=== PATIENT | female | born 1970 | race Caucasian/White ===

== ENCOUNTER 2017-02-26 09:42 | Day surgery (SDC) | payer BC ==
[2017-02-26] MEDS ORDERED: PROPOFOL 10 MG/ML VIAL IV ONE (09:43)
[2017-02-26] MEDS ORDERED: FENTANYL PF 100MCG/2ML VIAL IV ONE (09:43)
[2017-02-26] MEDS ORDERED: MIDAZOLAM HCL 2MG/2ML VIAL IV ONE (09:43)
[2017-02-26] MEDS ORDERED: LIDOCAINE 2% MDV (20MG/ML) 20ML VIAL IV ONE (09:43)
--- NOTE | 2017-03-08 08:51 | Operative Note ---
DATE OF SURGERY: 02/26/2017 SURGEON: Jim Farley MD PROCEDURE: ESOPHAGOGASTRODUODENOSCOPY. REASON FOR PROCEDURE: Gastroesophageal reflux disease. DESCRIPTION: The procedure of esophagogastroduodenoscopy and risks and benefits of the procedure, including the risk of bleeding and perforation, among others, were explained to the patient who voiced understanding and agreed to have the procedure done. Physical examination was performed, and the patient was found stable for sedation. PROCEDURE: The patient was placed in the left lateral position. Sedation was initiated. A plastic bite block was inserted into the oral cavity. The Olympus [id number] gastroscope was introduced into the oral cavity and advanced to the proximal esophagus without difficulty. The esophageal mucosa was carefully examined upon introduction of the gastroscope. The proximal and mid and distal esophageal mucosa appeared normal. The gastroscope was then advanced into the stomach, and surveillance of the stomach revealed mild erythema along the gastric body and antrum but no ulcers were noted. The gastroscope was then advanced to the descending duodenum without difficulty. The duodenal bulb and descending duodenum appeared normal. The gastroscope was then withdrawn into the stomach and retroflexion was performed. There were no other lesions noted. The gastroscope was then withdrawn while carefully examining the gastric and esophageal mucosa. No other lesions noted. Multiple duodenal and gastric biopsies were obtained. The patient remained with stable vital signs and was transferred to the recovery room. RECOMMENDATIONS: 1. The patient is to continue on her proton pump inhibitors. 2. We will follow up on the biopsy. 3. I will see her back in the office as needed. Thank you for allowing me to participate in the care of your patient. CC: Kane RICH
== END 2017-02-26 12:55 | disposition home or self-care (01) ==
LOC: HOP 09:42
PROVIDERS: ATTEND Internal Medicine Gastroenterology
DX: K21.9 Gastro-esophageal reflux disease without esophagitis (principal); K29.70 Gastritis, unspecified, without bleeding
CPT/HCPCS: 43235; 00731; J3010

== ENCOUNTER 2017-08-28 16:10 | Emergency (ER) | payer BC ==
--- NOTE | 2017-08-28 16:34 | Emergency Department Record ---
History of Present Illness - General Chief Complaint: Cough Stated Complaint: COUGH Time Seen by Provider: 08/28/17 16:30 Source: Patient Mode of Arrival: Ambulatory Limitations: No limitations - History of Present Illness Initial Comments: The patient is here due to a 3 week hx of cough, nasal congestion and chest congestion. She was seen at the 3 weeks ago and was treated with a Zpak but is not better now. The cough seems to be worsening and now she feels a rattling in her chest. She denies any fever, chest pain, or SOB when not having coughing fits. The patient does smoke tobacco regularly and also has had a popping sensation in her ears recently. MD Complaint: Cough, Nasal congestion, Rhinorrhea Onset/Timin -: Week(s) - Related Data Previous Rx's Medication Instructions Recorded Albuterol Sulfate [Proair Hfa] 2 puff IH QID PRN #1 inhaler 08/28/17 Doxycycline Monohydrate [Mondoxyne 100 mg PO BID #14 capsule 08/28/17 Nl] Prednisone [Prednisone 20Mg] 40 mg PO DAILY #10 tab 08/28/17 Allergies Allergy/AdvReac Type Severity Reaction Status Date / Time diazepam [From Valium] Allergy Severe RAPID Unverified 08/28/17 16:22 HEART RATE amoxicillin trihydrate Allergy Intermediate VOMITING Unverified 08/28/17 16:22 [From Augmentin] potassium clavulanate Allergy Intermediate VOMITING Unverified 08/28/17 16:22 [From Augmentin] Travel Screening - Travel/Exposure Within Last 30 Days Have you traveled within the last 30 days?: Yes [facility] - Travel/Exposure Within Last Year Have you traveled outside the [place] in the last year?: Yes Location Detail:: [place] last september - Travel Symptoms Symptom Screening: Joint & Muscle Aches Review of Systems Constitutional: Reports: Malaise. Denies: Chills, Fever Eyes: Denies: Eye discharge ENT: Reports: Congestion Respiratory: Reports: Cough. Denies: Dyspnea, Hemoptysis, Stridor, Wheezes Cardiovascular: Denies: Arrhythmia, Chest pain Past Medical History - SOCIAL HISTORY Smoking Status: Current every day smoker Alcohol Use: Occasional Drug Use: None - RESPIRATORY Hx Respiratory Disorders: No - CARDIOVASCULAR Hx Cardio Disorders: No - NEURO Hx Neuro Disorders: No - GI Hx GI Disorders: Yes Hx Abdominal Pain: Yes (CRAMPING UNDER RIBS) Comment:: CONSTIPATION - Hx Genitourinary Disorders: Yes Comment:: HYSTERECTOMY - ENDOCRINE Hx Endocrine Disorders: No - MUSCULOSKELETAL Hx Musculoskeletal Disorders: No - PSYCH Hx Psych Problems: Yes Hx Anxiety: Yes Hx Depression: Yes - HEMATOLOGY/ONCOLOGY Hx Hematology/Oncology Disorders: No Family Medical History Any Significant Family History?: No Hx Cancer: Grandparents *Cancer Comment: GRANDFATHER Hx Heart Disease: Father Hx Resp Disorders: Father Physical Exam - General General Appearance: Alert, Oriented x3, Cooperative, No acute distress - Head Head exam: Atraumatic, Normocephalic, Normal inspection - Eye Eye exam: Normal appearance, PERRL, EOMI - ENT ENT exam: Normal exam, Mucous membranes moist, Normal external ear exam, Normal orophraynx, TM's normal bilaterally Throat exam: Normal inspection. negative: Tonsillar erythema, Tonsillar exudate - Neck Neck exam: Normal inspection, Full ROM. negative: Lymphadenopathy, Tenderness - Respiratory Respiratory exam: Normal lung sounds bilaterally. negative: Rales, Respiratory distress, Rhonchi, Stridor, Wheezes - Cardiovascular Cardiovascular Exam: Regular rate, Normal rhythm, Normal heart sounds - GI/Abdominal GI/Abdominal exam: Soft, Normal bowel sounds. negative: Tenderness - Extremities Extremities exam: Normal inspection, Full ROM, Normal capillary refill. negative: Tenderness - Neurological Neurological exam: Alert, Normal gait. negative: Abnormal gait, Motor sensory deficit Course Vital Signs 08/28/17 16:13 Temperature 97.9 F Pulse Rate 117 H Respiratory 18 Rate Blood Pressure 122/77 Pulse Ox 96 - Reevaluation(s) Reevaluation #1: The patient is resting comfortably. On recheck her HR was 85 and she is having no pain or ANTONIO. I did discuss the neg CXR with her and the need for F/U if not better in 3 days. 08/28/17 17:05 Medical Decision Making - Data Complexity MDM Data: X-Ray Ordered and/or Reviewed - Radiology Data Radiology results: Report reviewed (CXR: Neg per Rad.) Disposition Disposition: Discharge Clinical Impression: Upper respiratory infection, acute Disposition: Home, Self-Care Condition: (2) Stable Instructions: Upper Respiratory Infection (ED) Additional Instructions: Please take the Doxycycline along with the inhaller and Prednisone as directed. Please see your family doctor if not better in 3 days. Return to the ER for any worsening symptoms. Prescriptions: Albuterol Sulfate [Proair Hfa] 2 puff IH QID PRN #1 inhaler PRN Reason: Cough And Difficulty Breathing Doxycycline Monohydrate [Mondoxyne Nl] 100 mg PO BID #14 capsule Prednisone [Prednisone 20Mg] 40 mg PO DAILY #10 tab Forms: Patient Portal Access Time of Disposition: 17:04 Quality - Quality Measures Quality Measures: N/A - Blood Pressure Screening View Details: Yes Does Patient Have Any of the Following: No Blood Pressure Classification: Pre-Hypertensive BP Reading Systolic Measurement: 122 Diastolic Measurement: 77 Screening for High Blood Pressure: < Pre-Hypertensive BP, F/U Documented > [ G8950] Pre-Hypertensive Follow-up Interventions: Referral to alternative/primary care provider.
--- NOTE | 2017-08-29 10:51 | RADIOLOGY REPORT ---
EXAM: CHEST 2 VIEWS HISTORY: COUGH. TECHNIQUE: Upright PA and lateral views of the chest are obtained. COMPARISON: None. FINDINGS: The cardiomediastinal silhouette is normal in size and configuration. The pulmonary vasculature is nondilated. The lungs and pleural spaces are clear. Minimal levoconvex curvature of the thoracic spine. IMPRESSION: NO EVIDENCE OF ACUTE CARDIOPULMONARY DISEASE. JOB NUMBER: [id number] MTDD
== END 2017-08-28 17:13 | disposition home or self-care (01) ==
LOC: ER 16:10
DX: J06.9 Acute upper respiratory infection, unspecified (principal); R05 Cough; F17.210 Nicotine dependence, cigarettes, uncomplicated
CPT/HCPCS: 71046; 99283

== ENCOUNTER 2018-05-24 07:24 | Emergency (ER) | payer BC ==
[2018-05-24] MEDS ORDERED: ONDANSETRON HCL IV 4 MG/2 ML VIAL IVP ONE (07:50)
[2018-05-24] MEDS ORDERED: 0.9 % SODIUM CHLORIDE 1,000 ML BAG IV ONE ×2 (07:50→09:09)
[2018-05-24] MEDS ORDERED: ACETAMINOPHEN 1,000 MG/100 ML BTL IVPB ONE (07:51)
--- NOTE | 2018-05-24 08:00 | Emergency Department Record ---
History of Present Illness - General Chief complaint: Nausea, Vomiting, Diarrhea Stated complaint: DIARRHEA/JIMENEZ Time Seen by Provider: 05/24/18 07:40 Source: Patient Mode of Arrival: Ambulatory Limitations: No limitations - History of Present Illness Initial comments: The patient is here due to multiple complaints. She did return from a trip to the [facility] 4 days ago and developed nausea, abdominal cramping with loose watery stools for the last 3 days. She denies any abdominal pain, fever, chills, vomiting, or blood in the stool. Today her diarrhea has slowed way down due to using Immodium last evening. Additionally she has had a day of chest discomfort. She describes it as a chest aching with intermittent radiation to the upper back. She has had mild nausea and ANTONIO with it also with a pleuritic component. The patient does state the pain is not worse with chest rotation and bending. The patient does have cardiac risk factors of tobacco use and a family hx of CAD. The patient also has had intermittent JIMENEZ's but presently they have resolved. MD complaint: Diarrhea, Nausea Onset/Timin -: Days(s) Consistency: Constant Improves with: None Worsens with: None Associated Symptoms: Other - Related Data Previous Rx's Medication Instructions Recorded Albuterol Sulfate [Proair Hfa] 2 puff IH QID PRN #1 inhaler 08/28/17 Allergies Allergy/AdvReac Type Severity Reaction Status Date / Time diazepam [From Valium] Allergy Severe RAPID Unverified 02/23/18 13:36 HEART RATE amoxicillin trihydrate Allergy Intermediate VOMITING Unverified 02/23/18 13:36 [From Augmentin] potassium clavulanate Allergy Intermediate VOMITING Unverified 02/23/18 13:36 [From Augmentin] Travel Screening - Travel/Exposure Within Last 30 Days Have you traveled within the last 30 days?: Yes Location Detail:: [place] - Travel/Exposure Within Last Year Have you traveled outside the [place] in the last year?: Yes Location Detail:: [place] - Additonal Travel Details Have you been exposed to anyone with a communicable illness?: No - Travel Symptoms Symptom Screening: Weakness, Diarrhea Review of Systems Constitutional: Denies: Chills, Fever Eyes: Denies: Eye discharge ENT: Denies: Congestion Respiratory: Denies: Cough Cardiovascular: Reports: Chest pain, Palpitations. Denies: Arrhythmia Endocrine: Reports: Fatigue Gastrointestinal: Reports: Diarrhea, Nausea. Denies: Vomiting Genitourinary: Denies: Dysuria Musculoskeletal: Denies: Arthralgia Skin: Denies: Bruising Past Medical History - SOCIAL HISTORY Smoking Status: Current every day smoker - RESPIRATORY Hx Respiratory Disorders: No - CARDIOVASCULAR Hx Cardio Disorders: No - NEURO Hx Neuro Disorders: No - GI Hx GI Disorders: Yes Hx Abdominal Pain: Yes (CRAMPING UNDER RIBS) Comment:: CONSTIPATION - Hx Genitourinary Disorders: Yes Comment:: HYSTERECTOMY - ENDOCRINE Hx Endocrine Disorders: No - MUSCULOSKELETAL Hx Musculoskeletal Disorders: No - PSYCH Hx Psych Problems: Yes Hx Anxiety: Yes Hx Depression: Yes - HEMATOLOGY/ONCOLOGY Hx Hematology/Oncology Disorders: No Family Medical History Any Significant Family History?: No Hx Cancer: Grandparents *Cancer Comment: GRANDFATHER Hx Heart Disease: Father Hx Resp Disorders: Father Physical Exam - General General Appearance: Alert, Oriented x3, Cooperative, No acute distress - Head Head exam: Atraumatic, Normocephalic, Normal inspection - Eye Eye exam: Normal appearance, PERRL - ENT Throat exam: Normal inspection. negative: Tonsillar erythema, Tonsillar exudate - Neck Neck exam: Normal inspection, Full ROM. negative: Tenderness - Respiratory Respiratory exam: Normal lung sounds bilaterally, Chest wall tenderness (The CP is 100% reproducible with chest palpation in the R upper T3-5 costochodral joints.). negative: Respiratory distress - Cardiovascular Cardiovascular Exam: Regular rate, Normal rhythm, Normal heart sounds - GI/Abdominal GI/Abdominal exam: Soft, Normal bowel sounds. negative: Guarding, Rebound, Rigid, Tenderness - Extremities Extremities exam: Normal inspection, Full ROM, Normal capillary refill. negative: Tenderness Image of Full Body: 1 - Area of reproducible chest pain to palpation. - Back Back exam: Reports: Normal inspection - Neurological Neurological exam: Alert, Normal gait. negative: Abnormal gait, Motor sensory deficit - Psychiatric Psychiatric exam: negative: Anxious - Skin Skin exam: negative: Rash Course Vital Signs 05/24/18 07:25 Temperature 97.9 F Pulse Rate 97 H Respiratory 20 Rate Blood Pressure 128/95 Pulse Ox 98 - Reevaluation(s) Reevaluation #1: The patient is doing a lot better at this time. Her pain and body aches are much improved after the [employer]. 05/24/18 09:18 Reevaluation #2: The patient is doing a lot better at this time. She denies any pain or discomfort and is resting comfortably. We have not been able to obtain a stool yet but will give the patient a script for home. She denies any nausea or vomiting or diarrhea. I did recommend a short stay hospital admission to evaluate her heart further but the patient is declining that recommendation. I did discuss the risks of leaving which include having an [place], stroke, being disabled and even dying by not staying in the hospital and the patient understands and accepts the risks. She would like to see her PCP for further evaluation. 05/24/18 09:58 Medical Decision Making - Data Complexity MDM Data: Labs Ordered and/or Reviewed, X-Ray Ordered and/or Reviewed, EKG Ordered and/or Reviewed - Lab Data Result diagrams: 05/24/18 08:00 05/24/18 08:00 - EKG Data -: EKG Interpreted by Me EKG: No Acute Changes, Normal EKG - Radiology Data Radiology results: Report reviewed (CXR: Neg.) Disposition Disposition: Discharge Clinical Impression: Diarrhea Qualifiers: Diarrhea type: unspecified type Qualified Code(s): R19.7 - Diarrhea, unspecified Disposition: Home, Self-Care Condition: (2) Stable Instructions: Acute Diarrhea (ED) Additional Instructions: Please drink plenty of fluids and use Tylenol or Motrin for pain. Continue your OTC antidiarrheal medicine. Please see your family doctor later this week for recheck. Return to the ER for any worsening symptoms. Forms: Patient Portal Access Time of Disposition: 10:04 Quality - Quality Measures Quality Measures: N/A - Blood Pressure Screening View Details: Yes Does Patient Have Any of the Following: No Blood Pressure Classification: Hypertensive Reading Systolic Measurement: 126 Diastolic Measurement: 95 Screening for High Blood Pressure: < First Hypertensive BP, F/U Documented > [ G8950] First Hypertensive Follow-up Interventions: Referral to alternative/primary care provider.
[2018-05-24 08:05] LABS: BASO % 0.2 % (0-6); EOS % 0.2 % (0-6); GRAN % 57.3 % (47-80); HEMATOCRIT 39.3 % (35.0-47.0); HEMOGLOBIN 13.7 gm/dl (11.6-16.0); MEAN CELL VOLUME 90.3 fl (81-97); MEAN CORPUSCULAR HEMOGLOBIN 31.5 pg (27-33); MEAN CORPUSCULAR HGB CONC 34.9 g/dl (32-36); MEAN PLATELET VOLUME 9.7 fl (7.4-10.4); MONO % 8.3 % (0-9); PLATELET COUNT 223 K/uL (130-400); RED BLOOD COUNT 4.35 M/uL (3.80-5.40); RED CELL DISTRIBUTION WIDTH 12.3 % (11.5-14.5); WHITE BLOOD COUNT W/O DIFF 5.2 K/uL (4.2-12.2)
[2018-05-24 08:14] LABS: BLOOD UREA NITROGEN 11 mg/dL (6-20); CREATININE 0.6 mg/dL (0.5-0.9); EST GLOMERULAR FILTRATION RATE > 60 mL/min
[2018-05-24 08:15] LABS: TOTAL PROTEIN 6.3 g/dL (6.6-8.7)
[2018-05-24 08:17] LABS: GLUCOSE,RANDOM 99 mg/dL (74-109)
[2018-05-24 08:19] LABS: PARTIAL THROMBOPLASTIN TIME 27.1 SECONDS (24.5-39.1)
[2018-05-24 08:20] LABS: ALB/GLOB RATIO 1.9 (1.1-1.8); ALBUMIN 4.1 g/dL (4.0-5.0); ALKALINE PHOSPHATASE 58 U/L (35-104); ALT/SGPT 16 U/L (<33); AST/SGOT 14 U/L (10.0-35.0)
[2018-05-24] MEDS ORDERED: KETOROLAC 30 MG/ML VIAL IVP ONE (09:22)
--- NOTE | 2018-05-25 12:39 | RADIOLOGY REPORT ---
EXAM: CHEST, TWO VIEWS HISTORY: PATIENT HAS CHEST PRESSURE. TECHNIQUE: Two views of the chest are provided along with the comparison study dated 08/28/17. FINDINGS: The cardiomediastinal silhouette is within normal limits for size and contour. The sima appear unremarkable. There is no radiographic evidence of a focal infiltrate, pleural effusion, or pneumothorax. IMPRESSION: NO RADIOGRAPHIC EVIDENCE OF AN ACUTE INTRATHORACIC PROCESS. JOB NUMBER: [id number] MTDD
== END 2018-05-24 10:15 | disposition home or self-care (01) ==
LOC: ER 07:24
DX: R19.7 Diarrhea, unspecified (principal); R07.89 Other chest pain; R11.2 Nausea with vomiting, unspecified; R51 Headache; R06.00 Dyspnea, unspecified; Z87.891 Personal history of nicotine dependence
CPT/HCPCS: 99284 ×2; 96365; 96375; 96361; 83690; 85025; 85730; 85610; 80053; 84484; 85379; 71046; 93005; 93010; J1885; J2405; J7030

== ENCOUNTER 2019-02-03 05:54 | Day surgery (SDC) | payer BC ==
[2019-02-03] MEDS ORDERED: MIDAZOLAM HCL 2MG/2ML VIAL IV ONE (05:55)
[2019-02-03] MEDS ORDERED: FENTANYL PF 100MCG/2ML VIAL IV ONE (05:55)
[2019-02-03] MEDS ORDERED: LIDOCAINE 2% MDV (20MG/ML) 20ML VIAL IV ONE (05:55)
[2019-02-03] MEDS ORDERED: PROPOFOL 10 MG/ML VIAL IV ONE (05:55)
[2019-02-03] MEDS ORDERED: ACETAMINOPHEN 1,000 MG/100 ML BTL IVPB ONE (06:00)
[2019-02-03] MEDS ORDERED: CLINDAMYCIN PHOS/D5W 900MG 900 MG/50 ML BAG IVPB ONE (06:00)
[2019-02-03] MEDS ORDERED: RINGERS SOLUTION,LACTATED 1,000 ML IV ONE (06:30)
[2019-02-03] MEDS ORDERED: LIDOCAINE 1% MPF 100MG/10ML STERILE-PAK AMPULE SQ ONE (08:50)
[2019-02-03] MEDS ORDERED: BUPIVACAINE 0.5% (5MG/ML) PF 30ML VIAL SQ ONE (08:51)
--- NOTE | 2019-02-06 08:40 | Operative Note ---
DATE OF SURGERY: 02/03/2019 PREOPERATIVE DIAGNOSIS: Painful tailor's bunion right foot. POSTOPERATIVE DIAGNOSIS: Painful tailor's bunion right foot. OPERATION: Mini reverse Gavin tailor's bunionectomy right foot with internal screw fixation. SURGEON: Houston Renee DPM ANESTHESIA: Local with IV sedation. INDICATION: The patient had a painful tailor's bunion right foot not responsive to conservative care. X-ray consistent with tailor's bunion deformity right foot. PROCEDURE: The patient was brought into the OR suite and placed supine upon the OR table. After successful IV sedation was achieved, a right tibial nerve block and dorsal proximal infiltrative block was given to the 5th metatarsal of the right foot with 20 mL of a 50/50 mixture of 1% lidocaine plain and 0.5% Marcaine plain after alcohol prep. Padding put on right ankle, pneumatic cuff put in place. The right foot, ankle, and leg was prepped and draped in the usual sterile manner and exsanguinated with an Esmarch, and the tourniquet was raised to 250 mmHg. Linear incision outlined and made, dorsolateral aspect of the tailor's bunion deformity right foot 4 cm in length. Sharp and blunt dissection utilized to deepen the incision. All vital structures identified and retracted without difficulty. Inverted L capsulotomy performed and reflected exposing a bony prominence lateral aspect of the 5th metatarsal head, which was removed with a power sagittal saw cooled with saline. The plantar and dorsal mini reverse Gavin osteotomies were performed with a long dorsal arm. All bone cuts cooled with saline. The capital fragment transposed medially approximately 2 mm and temporarily fixated with a wire from the OsteoMed set driven from a distal dorsal to proximal plantar fashion through the capital fragment into the 5th metatarsal shaft under C-arm guidance. This measured at 28 mm. One 2.0 x 28 mm headless cannulated OsteoMed screw was driven in typical cannulated fashion and proved to be too long per C-arm. This was removed and a 26 x 2.0 mm headless cannulated OsteoMed screw was then driven in typical cannulated fashion. C-arm proved appropriate length. There was good [id number] contact at the osteotomy, screw in good position, and an appropriate length with resolution of the tailor's bunion. Proximal shelf of bone laterally removed with a power sagittal saw. C-arm indicated appropriate removal of bone. No rough areas left intact. Wound flushed with copious amounts of sterile saline. Capsule closed in simple interrupted fashion with 4-0 Vicryl. Subcu level closed in the same fashion. Skin closed in subcuticular continuous fashion with 5-0 PDS reinforced with in simple interrupted fashion with 4-0 nylon. A combination of Adaptic, 4 x 4's, 4- inch Quique, and Giovanny wrap were applied. Tourniquet deflated to 0 mmHg. Hyperemic flush noted to digits. The patient tolerated the procedure well and was transferred to recovery room in stable condition without complaint. She is to minimize ambulation with a CAM walker and crutches, keep extremity elevated, take pain medications as needed, keep dressing clean, dry, and intact, and contact me by my cell phone as needed. She will follow up in the office in the next week. LAYLA
== END 2019-02-03 09:55 | disposition home or self-care (01) ==
LOC: SUR 05:54
PROVIDERS: ATTEND Podiatrist
DX: M21.621 Bunionette of right foot (principal); K21.9 Gastro-esophageal reflux disease without esophagitis; F17.210 Nicotine dependence, cigarettes, uncomplicated; Z86.79 Personal history of other diseases of the circulatory system
CPT/HCPCS: 28299; 01480; C1713 ×3; J3010; J3490; J7120